=== PATIENT | female | born 1985 | race Caucasian/White ===

== ENCOUNTER 2019-08-29 23:36 | Emergency (ER) | payer BC, MEDICARE ==
--- NOTE | 2019-08-30 00:01 | EDM.PDOC ---
ED HPI GENERAL MEDICAL PROBLEM - General Chief Complaint: Headache Stated Complaint: MIGRAINE Time Seen by Provider: 08/30/19 00:00 Source of Information: Reports: Patient History Limitations: Reports: No Limitations - History of Present Illness INITIAL COMMENTS - FREE TEXT/NARRATIVE: 34-year-old female who is new to our area presents to the ED with a left hemicranial headache. These seem to be a chronic recurrent problem for her since fall and injury to her cervical spine and thoracic spine about 5 years ago. She also has some chronic dental problems which may or may not be contributing to her headache. She has pain coming from the left upper molar teeth. Dental surgery done. Patient states that she has attention deficit disorder and is on Vyvanse for this on a daily basis. Is appreciated quite quickly when speaking with her that she is speaking in a faster than normal and has some flight of ideas indicating that she is hypomanic at this time. She essentially comes to the ED seeking medication for headache relief. He is also asking when she came to do about her chronic cervical neck pain as she's been going to physiotherapy off and on for 5 years. Also asking about who to see as far as local dental care as she is interested in starting in this align etc. Therefore her thought processes are tangential. She describes a headache is constant throbbing and pounding. Associated nausea vomiting or blurred vision. Headache is very similar to what she's experienced multiple times in the past. Onset: Today Onset Date: 08/29/19 Onset Time: 21:00 Duration: Hour(s): Location: Reports: Head ( Her headache is on the left side of her head. left- sided headache. ), Neck (Chronic cervical neck pain primarily in the right side of her neck.), Other Quality: Reports: Ache (Left upper molar dental discomfort.), Throbbing Severity: Moderate Improves with: Reports: None Worsens with: Reports: None (6 out of 10.) Context: Reports: Trauma (Remote trauma 5 years ago from a fall where she injured her cervical spine and her thoracic spine.). Denies: Activity, Exercise , Lifting, Sick Contact, Other Associated Symptoms: Reports: Headaches, Malaise (Gets a lot of headaches.). 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 (see below) (None.) Left Headache Pain Score (Numeric/FACES): 10 - Related Data Allergies Allergy/AdvReac Type Severity Reaction Status Date / Time No Known Allergies Allergy Verified 07/05/19 13:03 Home Meds: Home Meds ALPRAZolam [Xanax] 0.5 mg PO QID PRN 07/05/19 [History] Lisdexamfetamine Dimesylate [Vyvanse] 20 mg PO DAILY 08/29/19 [History] Ondansetron [Zofran] 4 mg BUCCAL Q6H PRN #5 tab 08/30/19 [Rx] oxyCODONE HCl/Acetaminophen [Percocet 5-325 mg Tablet] 1 - 2 each PO Q4H PRN # 10 tablet 08/30/19 [Rx] Past Medical History Musculoskeletal History: Reports: Other (See Below) Other Musculoskeletal History: neck pain Psychiatric History: Reports: ADHD, Anxiety, Bipolar (Suspect bipolar affective disorder) - Past Surgical History HEENT Surgical History: Reports: Oral Surgery Social & Family History - Family History Family Medical History: Noncontributory - Tobacco Use Smoking Status *Q: Current Every Day Smoker Years of Tobacco use: 18 Packs/Tins Daily: 0.2 - Caffeine Use Caffeine Use: Reports: Coffee, Energy Drinks, Soda, Tea - Recreational Drug Use Recreational Drug Use: No - Living Situation & Occupation Living situation: Reports: Single Occupation: Disabled ED ROS GENERAL - Review of Systems Review Of Systems: See Below Constitutional: Denies: Fever, Chills, Malaise, Weakness, Fatigue, Decreased Appetite, Weight Loss HEENT: Reports: Dental Pain Respiratory: Reports: No Symptoms (Doppler dental molar pain.) Cardiovascular: Reports: No Symptoms Endocrine: Reports: No Symptoms GI/Abdominal: Reports: No Symptoms : Reports: No Symptoms Musculoskeletal: Reports: Neck Pain (Chronic right-sided cervical neck pain), Other (Chronic pain thoracic spine.) Skin: Reports: No Symptoms Neurological: Reports: Headache (Chronic headache problems) Psychiatric: Reports: Anxiety, Other (Attention deficit disorder. Clinically she is suffering from bipolar affective disorder with hypomanic state at present.) Immunologic: Reports: No Symptoms - Physical Exam Exam: See Below Exam Limited By: Altered Mental Status (Patient is speaking in a faster pace than normal and is exhibiting hypomania. She is not acutely manic at this time.) General Appearance: Alert, WD/WN, Anxious, Mild Distress Eye Exam: Bilateral Eye: Normal Inspection, PERRL Ears: Normal TMs Throat/Mouth: Normal Inspection, Normal Lips, Normal Teeth, Normal Oropharynx, Other (I could find no abnormalities with her dentition. Gingiva are normal. Firm palpation with tongue blade over the bicuspids and the first and second upper molars gave her no pain.) Head Exam: Atraumatic, Normocephalic Neck: Normal Inspection, Supple, Non-Tender, Full Range of Motion. No: Lymphadenopathy (L), Lymphadenopathy (R) Respiratory/Chest: No Respiratory Distress, Lungs Clear, Normal Breath Sounds, No Accessory Muscle Use Cardiovascular: Normal Peripheral Pulses (Resting tachycardia of 109.), Regular Rate, Rhythm, No Edema, No Gallop, Tachycardia Neuro Exam (Abbreviated): Alert, Oriented, CN II-XII Intact, Normal Cognition, Normal Gait, Normal Reflexes DTR: 1+: Achilles (R), Achilles (L), 2+: Patella (R), Patella (L) Extremities: Normal Inspection, Normal Range of Motion, Non-Tender Psychiatric: Other (Exhibiting hypomanic behavior. Speaking at a faaster rate than normal. Flight of ideas. ). No: Normal Affect, Normal Mood Skin Exam: Warm, Dry, Intact, Normal Color, No Rash Course - Vital Signs Last Recorded V/S: Last Vital Signs Temp 36.7 C 08/29/19 23:44 Pulse 109 H 08/29/19 23:44 Resp 16 08/29/19 23:44 BP 139/96 H 08/29/19 23:44 Pulse Ox 100 08/29/19 23:44 - Radiology Interpretation Free Text/Narrative:: 34-year-old female presents to the ED complaining of a multitude of complaints primarily chronic cervical neck pain right side chronic upper thoracic back pain and chronic recurrent left-sided headaches. She is also concerned about bad teeth left upper molars contributing to her headache pain. However examination of her teeth shows no abnormalities. Cranial nerves II-12 are intact neuro exam is normal. She does have some paraspinal muscle spasm on the right side of her neck and pain over the facet joints at C3 C4 C5 on the right side. Reports a injury where she fell backwards about 5 years ago and is at chronic pain since. Apparently no fractures are identified. Spoke about cervical traction device that she could purchase through [facility]. Tonight and is going to give her 2 Percocet tablets by mouth with Zofran 4 mg sublingual for headache relief. She can find a dentist for panoramic x-rays to ensure that her teeth are normal. There is no doubt that the patient has underlying bipolar affective disorder is exhibiting hypomanic behavior in the ED. Her rate of speech is faster than normal. She has significant flight of ideas and can dwell on one problem for very long. When I approach this subject she indicated that she's functioning well without any need for further medications. Departure - Departure Time of Disposition: 00:10 Disposition: Home, Self-Care 01 Condition: Fair Clinical Impression: Headache Qualifiers: Headache type: paroxysmal hemicrania Headache chronicity pattern: unspecified pattern Intractability: not intractable Qualified Code(s): G44.039 - Episodic paroxysmal hemicrania, not intractable - Discharge Information *PRESCRIPTION DRUG MONITORING PROGRAM REVIEWED*: Not Applicable *COPY OF PRESCRIPTION DRUG MONITORING REPORT IN PATIENT MAYA: Not Applicable Prescriptions: Ondansetron [Zofran] 4 mg BUCCAL Q6H PRN #5 tab PRN Reason: nausea or vomiting oxyCODONE HCl/Acetaminophen [Percocet 5-325 mg Tablet] 1 - 2 each PO Q4H PRN # 10 tablet PRN Reason: pain relief. Instructions: Recurrent Migraine Headache, [id number] Referrals: PCP,None [Primary Care Provider] - Forms: ED Department Discharge Additional Instructions: Evaluation the emergent tonight in regards to left hemicranial headache which seems to be a recurrent problem. Possibly originating from dental problem but I feel more likely to be coming from her cervical spine or neck. Reported injury to her cervical spine and upper portions of the thoracic spine about 5 years ago which have continued to plague you with chronic pain and intermittent headaches. Would suggest purchasing a cervical traction device which can be placed on the top of your doorframe and you can do cervical traction therapy at home. Suggest going to [facility] which is also on [address] near [employer] and [employer] to purchase cervical traction device which she can use once or twice daily to give you relief. Tonight I have prescribed 10 Percocet tablets 5-25 mg strength doses one or 2 tablets every 6 hours as needed for pain relief. Suggest taking a Zofran 4 mg tablet under the tongue with this to prevent any nausea vomiting from the pain pills. As far as the dental dental pain goes , panoramic x-rays would need to be done by a local dentist to make sure there is no infection in the root of any of the left upper molar teeth. On examination today and they appear to be normal and are nontender to exam with no signs of dental abscess. Ear examination was normal as well.
== END 2019-08-30 00:44 | disposition home or self-care (01) ==
LOC: JD.ED 23:36
DX: G44.039 Episodic paroxysmal hemicrania, not intractable (principal); F41.9 Anxiety disorder, unspecified; F90.9 Attention-deficit hyperactivity disorder, unspecified type; F17.210 Nicotine dependence, cigarettes, uncomplicated; Z79.899 Other long term (current) drug therapy
CPT/HCPCS: 99283; 99284

== ENCOUNTER 2019-09-20 13:38 | Emergency (ER) | payer MEDICARE, MEDICAID ==
[2019-09-20] MEDS ORDERED: FLU Vacc QS2019-20(6MOS+)/PF 60 MCG/0.5 ML SYRINGE IM ONE (14:00)
--- NOTE | 2019-09-20 14:04 | EDM.PDOC ---
<Oliva Epstein - Last Filed: 09/20/19 14:29> ED HPI GENERAL MEDICAL PROBLEM - General Chief Complaint: Abdominal Pain Stated Complaint: LOW ABD PAIN Time Seen by Provider: 09/20/19 14:00 Source of Information: Reports: Patient History Limitations: Reports: No Limitations - History of Present Illness INITIAL COMMENTS - FREE TEXT/NARRATIVE: 34 year old female presents to the ED for evaluation of lower abdominal pain. This morning she was having pain across her lower abdomen described as crampy. She currently is at a 0/10 for pain but has a history of ovarian torsion and ovarian cysts and wants to have a transvaginal ultrasound done to check for these two things. She does not think she is . She denies any nausea, vomiting, diarrhea, fever and chills. She is speaking faster than normal, with a tangential thought process and flight of ideas. Very anxious and unable to sit still. Patient history significant for anxiety and ADHD. Onset: Today Onset Date: 09/20/19 Duration: Resolved Prior to Arrival Location: Reports: Abdomen Severity: Mild Improves with: Reports: None Worsens with: Reports: None Associated Symptoms: Reports: No Other Symptoms Bilateral Lower Abdomen Pain Score (Numeric/FACES): 0 - Related Data Allergies Allergy/AdvReac Type Severity Reaction Status Date / Time No Known Allergies Allergy Verified 09/20/19 13:47 Home Meds: Home Meds ALPRAZolam [Xanax] 0.5 mg PO QID PRN 07/05/19 [History] Lisdexamfetamine Dimesylate [Vyvanse] 20 mg PO DAILY 08/29/19 [History] Ondansetron [Zofran] 4 mg BUCCAL Q6H PRN #5 tab 08/30/19 [Rx] Past Medical History Cardiovascular History: Reports: None Respiratory History: Reports: None Gastrointestinal History: Reports: None Genitourinary History: Reports: None 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) Other HOUSE CARPENTER HELPER History: Ovarian Cysts Musculoskeletal History: Reports: Other (See Below) Other Musculoskeletal History: neck pain Neurological History: Reports: None Psychiatric History: Reports: ADHD, Anxiety, Bipolar Endocrine/Metabolic History: Reports: None Hematologic History: Reports: None Immunologic History: Reports: None Oncologic (Cancer) History: Reports: None Dermatologic History: Reports: None - Infectious Disease History Infectious Disease History: Reports: None - Past Surgical History Head Surgeries/Procedures: Reports: None HEENT Surgical History: Reports: Oral Surgery Social & Family History - Family History Family Medical History: Noncontributory - Tobacco Use Smoking Status *Q: Current Every Day Smoker Years of Tobacco use: 3 Packs/Tins Daily: 0.5 - Caffeine Use Caffeine Use: Reports: Coffee, Energy Drinks, Soda - Recreational Drug Use Recreational Drug Use: No - Living Situation & Occupation Living situation: Reports: Single Occupation: Disabled ED ROS GENERAL - Review of Systems Review Of Systems: See Below Constitutional: Reports: No Symptoms HEENT: Reports: No Symptoms Respiratory: Reports: No Symptoms Cardiovascular: Reports: No Symptoms Endocrine: Reports: No Symptoms GI/Abdominal: Reports: No Symptoms : Reports: No Symptoms Musculoskeletal: Reports: No Symptoms Skin: Reports: No Symptoms Neurological: Reports: No Symptoms Psychiatric: Reports: Anxiety Hematologic/Lymphatic: Reports: No Symptoms Immunologic: Reports: No Symptoms ED EXAM, GI/ABD - Physical Exam Exam: See Below Exam Limited By: No Limitations General Appearance: Alert, WD/WN, No Apparent Distress Respiratory/Chest: No Respiratory Distress, Lungs Clear, Normal Breath Sounds, No Accessory Muscle Use, Chest Non-Tender Cardiovascular: Normal Peripheral Pulses, Regular Rate, Rhythm, No Edema, No Gallop, No JVD, No Murmur, No Rub GI/Abdominal Exam: Normal Bowel Sounds, Soft, Non-Tender, No Organomegaly, No Distention, No Abnormal Bruit, No Mass, Pelvis Stable Neurological: Alert, Oriented Psychiatric: Normal Affect, Other (tangential thought process, flight of ideas) Skin Exam: Warm, Dry, Intact, Normal Color, No Rash Lymphatic: No Adenopathy Course - Vital Signs Last Recorded V/S: Last Vital Signs Temp 97.6 F 09/20/19 13:44 Pulse 114 H 09/20/19 13:44 Resp 16 09/20/19 13:44 BP 139/89 09/20/19 13:44 Pulse Ox 100 09/20/19 13:44 - Orders/Labs/Meds Orders: Active Orders 24 hr Category Date Time Status Influenza Vaccine Charge [RC] .DISCHARGE Care 09/20/19 13:50 Active HCG QUANTITATIVE [CHEM] Stat Lab 09/20/19 14:48 Ordered Labs: Laboratory Tests 09/20/19 09/20/19 09/20/19 Range/Units 14:09 14:16 14:16 WBC 10.53 H (3.98-10.04) K/mm3 RBC 3.58 L (3.98-5.22) M/mm3 Hgb 12.0 (11.2-15.7) gm/dl Hct 36.4 (34.1-44.9) % MCV 101.7 H (79.4-94.8) fl MCH 33.5 H (25.6-32.2) pg MCHC 33.0 (32.2-35.5) g/dl RDW Std Deviation 49.1 H (36.4-46.3) fL Plt Count 278 (182-369) K/mm3 MPV 9.8 (9.4-12.3) fl Neut % (Auto) 78.3 H (34.0-71.1) % Lymph % (Auto) 14.3 L (19.3-51.7) % [place] % (Auto) 6.6 (4.7-12.5) % Eos % (Auto) 0.3 L (0.7-5.8) Baso % (Auto) 0.2 (0.1-1.2) % Neut # (Auto) 8.25 H (1.56-6.13) K/mm3 Lymph # (Auto) 1.51 (1.18-3.74) K/mm3 [place] # (Auto) 0.69 H (0.24-0.36) K/mm3 Eos # (Auto) 0.03 L (0.04-0.36) K/mm3 Baso # (Auto) 0.02 (0.01-0.08) K/mm3 Sodium 135 L (136-145) mEq/L Potassium 3.0 L (3.5-5.1) mEq/L Chloride 102 (98-107) mEq/L Carbon Dioxide 21 (21-32) mEq/L Anion Gap 15.0 (5-15) BUN 3 L (7-18) mg/dL Creatinine 0.6 (0.55-1.02) mg/dL Est Cr Clr Drug Dosing 114.08 mL/min Estimated GFR (MDRD) > 60 (>60) mL/min BUN/Creatinine Ratio 5.0 L (14-18) Glucose 94 (74-106) mg/dL Calcium 8.7 (8.5-10.1) mg/dL Total Bilirubin 0.3 (0.2-1.0) mg/dL AST 17 (15-37) U/L ALT 19 (14-59) U/L Alkaline Phosphatase 63 (46-116) U/L Total Protein 7.3 (6.4-8.2) g/dl Albumin 3.6 (3.4-5.0) g/dl Globulin 3.7 gm/dL Albumin/Globulin Ratio 1.0 (1-2) Lipase 40 L (73-393) U/L HCG, Qual (NEGATIVE) Urine Color Yellow (Yellow) Urine Appearance Clear (Clear) Urine pH 6.5 (5.0-8.0) Ur Specific [place] 1.010 (1.005-1.030) Urine Protein Negative (Negative) Urine Glucose (UA) Negative (Negative) Urine Ketones Negative (Negative) Urine Occult Blood Trace-intact H (Negative) Urine Nitrite Negative (Negative) Urine Bilirubin Negative (Negative) Urine Urobilinogen 0.2 (0.2-1.0) Ur Leukocyte Esterase Negative (Negative) Urine RBC 0-5 (0-5) /hpf Urine WBC 0-5 (0-5) /hpf Ur Squamous Epith Cells 0-5 (0-5) /hpf Urine Bacteria Few (FEW) /hpf Urine Mucus Few (FEW) /hpf 09/20/19 Range/Units 14:16 WBC (3.98-10.04) K/mm3 RBC (3.98-5.22) M/mm3 Hgb (11.2-15.7) gm/dl Hct (34.1-44.9) % MCV (79.4-94.8) fl MCH (25.6-32.2) pg MCHC (32.2-35.5) g/dl RDW Std Deviation (36.4-46.3) fL Plt Count (182-369) K/mm3 MPV (9.4-12.3) fl Neut % (Auto) (34.0-71.1) % Lymph % (Auto) (19.3-51.7) % [place] % (Auto) (4.7-12.5) % Eos % (Auto) (0.7-5.8) Baso % (Auto) (0.1-1.2) % Neut # (Auto) (1.56-6.13) K/mm3 Lymph # (Auto) (1.18-3.74) K/mm3 [place] # (Auto) (0.24-0.36) K/mm3 Eos # (Auto) (0.04-0.36) K/mm3 Baso # (Auto) (0.01-0.08) K/mm3 Sodium (136-145) mEq/L Potassium (3.5-5.1) mEq/L Chloride (98-107) mEq/L Carbon Dioxide (21-32) mEq/L Anion Gap (5-15) BUN (7-18) mg/dL Creatinine (0.55-1.02) mg/dL Est Cr Clr Drug Dosing mL/min Estimated GFR (MDRD) (>60) mL/min BUN/Creatinine Ratio (14-18) Glucose (74-106) mg/dL Calcium (8.5-10.1) mg/dL Total Bilirubin (0.2-1.0) mg/dL AST (15-37) U/L ALT (14-59) U/L Alkaline Phosphatase (46-116) U/L Total Protein (6.4-8.2) g/dl Albumin (3.4-5.0) g/dl Globulin gm/dL Albumin/Globulin Ratio (1-2) Lipase (73-393) U/L HCG, Qual Positive H (NEGATIVE) Urine Color (Yellow) Urine Appearance (Clear) Urine pH (5.0-8.0) Ur Specific [place] (1.005-1.030) Urine Protein (Negative) Urine Glucose (UA) (Negative) Urine Ketones (Negative) Urine Occult Blood (Negative) Urine Nitrite (Negative) Urine Bilirubin (Negative) Urine Urobilinogen (0.2-1.0) Ur Leukocyte Esterase (Negative) Urine RBC (0-5) /hpf Urine WBC (0-5) /hpf Ur Squamous Epith Cells (0-5) /hpf Urine Bacteria (FEW) /hpf Urine Mucus (FEW) /hpf Meds: Medications Discontinued Medications Generic Name Dose Route Start Last Admin Trade Name Freq PRN Reason Stop Dose Admin Influenza Virus Vaccine 60 mcg 09/20/19 14:00 09/20/19 14:01 Fluzone Quad [id number] Syringe IM 09/20/19 14:01 60 mcg .ONCE ONE Administration Departure - Departure Disposition: Home, Self-Care 01 Clinical Impression: Qualifiers: Weeks of gestation: less than 8 weeks Qualified Code(s): Z3A.01 - Less than 8 weeks gestation of Ovarian cyst Qualifiers: Laterality: right Qualified Code(s): N83.201 - Unspecified ovarian cyst, right side - Discharge Information Referrals: PCP,None [Primary Care Provider] - Michael Mishra MD [Physician] - 1 Week Forms: ED Department Discharge Additional Instructions: Drink plenty of fluids. Take a vitamin. Use tylenol for any pain. Follow up with Dr Mishra within a week. Please return if you are worse. - My Orders Last 24 Hours: My Active Orders 09/20/19 13:50 Influenza Vaccine Charge [RC] .DISCHARGE 09/20/19 14:48 HCG QUANTITATIVE [CHEM] Stat - Assessment/Plan Last 24 Hours: My Active Orders 09/20/19 13:50 Influenza Vaccine Charge [RC] .DISCHARGE 09/20/19 14:48 HCG QUANTITATIVE [CHEM] Stat <Sanju Fry - Last Filed: 09/20/19 15:31> Course - Re-Assessments/Exams Free Text/Narrative Re-Assessment/Exam: 09/20/19 15:27 I examined the patient myself and I agree with Anastasia's assessment and plan. I ordered labs, UA and a transvaginal US. Her WBC was elevated slightly at 10.53. Her Na is low at 135. Her K is low at 3. Her lipase was low. Her HCG is positive. Her UA shows no UIT. Her US shows a single intrauterine gestation. at 6 weeks 4 days and a heart rat of 115. She also has a 2.9cm simple cyst within the maternal right ovary. I let the patient know. It was a surprise but she took the news well. She has 2 children already. Departure - Departure Time of Disposition: 15:30 Condition: Good - Discharge Information *PRESCRIPTION DRUG MONITORING PROGRAM REVIEWED*: No *COPY OF PRESCRIPTION DRUG MONITORING REPORT IN PATIENT MAYA: No
--- NOTE | 2019-09-20 15:21 | US ---
Firste trimester obstetrical ultrasound: Multiple real-time images were obtained transvaginally. Dates: Current ultrasound: [id number] 05/11/20, gestational age 6 weeks 4 days Single intrauterine gestation is seen. Amniotic fluid volume is normal. Yolk sac and pole are noted. Small amount of free fluid is seen within the cul-de-sac. Maternal right ovary shows a cyst within the right ovary measuring 2.9 cm. Left ovary is unremarkable. Measurements: [place]-rump length: 0.66 cm - 6 weeks 4 days Heart rate: 115 bpm Impression: 1. Single intrauterine gestation. Dates as noted above. 2. 2.9 cm simple cyst within the maternal right ovary. Diagnostic code #2
== END 2019-09-20 15:40 | disposition home or self-care (01) ==
LOC: JD.ED 13:38
DX: O99.89 Other specified diseases and conditions complicating pregnancy, childbirth and the puerperium (principal); N83.201 Unspecified ovarian cyst, right side; O99.341 Other mental disorders complicating pregnancy, first trimester; F41.9 Anxiety disorder, unspecified; O99.331 Smoking (tobacco) complicating pregnancy, first trimester; Z79.899 Other long term (current) drug therapy; Z3A.08 8 weeks gestation of pregnancy
CPT/HCPCS: 36415; 76817; 76817-26; 80053; 81001; 83690; 84702; 84703; 85025; 90471; 90686; 99282; 99284-25; G0008

== ENCOUNTER 2019-11-25 07:35 | Emergency (ER) | payer MEDICARE, MEDICAID ==
--- NOTE | 2019-11-25 08:07 | EDM.PDOC ---
ED HPI GENERAL MEDICAL PROBLEM - General Chief Complaint: Back Pain or Injury Stated Complaint: LOWER BACK PAIN Time Seen by Provider: 11/25/19 08:05 - History of Present Illness INITIAL COMMENTS - FREE TEXT/NARRATIVE: 34-year-old female presents the emergency room complaining of no menstrual period. Patient was seen here September 20 had an 8-week gestation. She developed cramping and bleeding and ultimately had a miscarriage. She was evaluated in the clinic in [place] for this. Since that time the patient has not had a period. She is not had any fevers or chills at this point she denies any pain. She is not having any discharge. 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 (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 Below) Other MANAGER ENVIRONMENTAL AFFAIRS History: Ovarian Cysts Musculoskeletal History: Reports: Other (See Below) Other Musculoskeletal History: neck pain Neurological History: Reports: None Psychiatric History: Reports: ADHD, Anxiety, Bipolar Endocrine/Metabolic History: Reports: None Hematologic History: Reports: None Immunologic History: Reports: None Oncologic (Cancer) History: Reports: None Dermatologic History: Reports: None - Infectious Disease History Infectious Disease History: Reports: None - Past Surgical History Head Surgeries/Procedures: Reports: None HEENT Surgical History: Reports: Oral Surgery Social & Family History - Family History Family Medical History: Noncontributory - Tobacco Use Smoking Status *Q: Never Smoker - Caffeine Use Caffeine Use: Reports: Coffee, Energy Drinks, Soda - Living Situation & Occupation Living situation: Reports: Single Occupation: Disabled ED ROS GENERAL - Review of Systems Review Of Systems: See Below Constitutional: Reports: No Symptoms Respiratory: Reports: No Symptoms Cardiovascular: Reports: No Symptoms GI/Abdominal: Reports: No Symptoms : Reports: No Symptoms Musculoskeletal: Denies: Back Pain ED EXAM,LOWER BACK PAIN/INJURY - Physical Exam Exam: See Below Exam Limited By: No Limitations General Appearance: Alert, Other (He appears a little anxious at this time and is eager to get going) Respiratory/Chest: No Respiratory Distress, Lungs Clear, Normal Breath Sounds Cardiovascular: Regular Rate, Rhythm, No Edema, No Murmur GI/Abdominal: Normal Bowel Sounds, Soft, Non-Tender Back Exam: Normal Inspection, Other (Back exam is normal). No: CVA Tenderness ( L), CVA Tenderness (R), Muscle Spasm, Vertebral Tenderness Course - Vital Signs Last Recorded V/S: Last Vital Signs Temp 36.4 C 11/25/19 07:48 Pulse 109 H 11/25/19 07:48 Resp 16 11/25/19 07:48 BP 149/99 H 11/25/19 07:48 Pulse Ox 100 11/25/19 07:48 - Re-Assessments/Exams Free Text/Narrative Re-Assessment/Exam: 11/25/19 08:[address] Mishra. The patient needs to follow-up and establish with a regular provider to get a proper work-up done for this. I discussed this with the patient and she understands. Departure - Departure Time of Disposition: 08:33 Disposition: Home, Self-Care 01 Clinical Impression: Amenorrhea - Discharge Information Referrals: PCP,None [Primary Care Provider] - Forms: ED Department Discharge Additional Instructions: Return to the emergency room with any questions problems or worsening symptoms. For this particular problem it is best to be worked up in a primary care setting because you will need a work-up for this. Follow-up with the hospital clinic and schedule an appointment. [phone] Sepsis Event Note - Evaluation Sepsis Screening Result: No Definite Risk - Focused Exam Vital Signs: Vital Signs Temp Pulse Resp BP Pulse Ox 11/25/19 07:48 36.4 C 109 H 16 149/99 H 100 Date Exam was Performed: 11/25/19 Time Exam was Performed: 08:36
== END 2019-11-25 08:50 | disposition home or self-care (01) ==
LOC: JD.ED 07:35
DX: N91.2 Amenorrhea, unspecified (principal)
CPT/HCPCS: 99281; 99283

== ENCOUNTER 2020-03-28 17:08 | Emergency (ER) | payer MEDICARE ==
[2020-03-28] MEDS ORDERED: Ketorolac 30 MG/ML SDV IVPUSH ONE (17:36)
[2020-03-28] MEDS ORDERED: Ondansetron 4 MG/2 ML SDV IVPUSH ONE (17:36)
[2020-03-28] MEDS ORDERED: diphenhydrAMINE 50 MG/ML SDV IVPUSH ONE (17:37)
[2020-03-28] MEDS ORDERED: Sodium Chloride 0.9% 1,000 ML IV SCH (17:45)
[2020-03-28] MEDS ORDERED: Ketorolac 30 MG/ML SDV ONE ×2 (17:49→17:57)
[2020-03-28] MEDS ORDERED: diphenhydrAMINE 50 MG/ML SDV ONE ×2 (17:50→17:58)
[2020-03-28] MEDS ORDERED: Ondansetron 4 MG/2 ML SDV ONE ×2 (17:50→17:57)
[2020-03-28] MEDS ORDERED: Sodium Chloride 0.9% 1,000 ML ONE ×2 (17:50→17:58)
[2020-03-28] MEDS ORDERED: HYDROmorphone 0.5 MG/0.5 ML Syringe ONE (18:58)
--- NOTE | 2020-03-28 19:02 | EDM.PDOC ---
ED HPI GENERAL MEDICAL PROBLEM - General Chief Complaint: Headache Stated Complaint: Headache Time Seen by Provider: 03/28/20 17:09 Source of Information: Reports: Patient History Limitations: Reports: No Limitations - History of Present Illness INITIAL COMMENTS - FREE TEXT/NARRATIVE: Patient is a 34-year-old female who presents to the ER with complaints of a migraine headache that started yesterday. Patient does have a history of migraines and states this is similar to her previous headaches. She does have photo and phono sensitivity. She states she has been taking ibuprofen with little to no relief. She does also have intermittent nausea. Patient has a diagnosis of anxiety, ADHD, and bipolar disorder, however states she has not been taking her medications for a few months. She states that when she comes off her medications her migraines usually increase in frequency and intensity. States that she has a follow-up appointment scheduled in April and plans to go back on her medications at that time. She denies any vomiting, dizziness, fever , or chills. 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 Musculoskeletal History: Reports: Other (See Below) Other Musculoskeletal History: neck pain Neurological History: Reports: Migraines Psychiatric History: Reports: ADHD, Anxiety, Bipolar Endocrine/Metabolic History: Reports: None Hematologic History: Reports: None Immunologic History: Reports: None Oncologic (Cancer) History: Reports: None Dermatologic History: Reports: None - Infectious Disease History Infectious Disease History: Reports: None - Past Surgical History Head Surgeries/Procedures: Reports: None HEENT Surgical History: Reports: Oral Surgery Social & Family History - Family History Family Medical History: Noncontributory - Tobacco Use Smoking Status *Q: Current Every Day Smoker Years of Tobacco use: 2 Packs/Tins Daily: 0.5 - Caffeine Use Caffeine Use: Reports: Coffee, Energy Drinks, Soda - Living Situation & Occupation Living situation: Reports: Single Occupation: Disabled ED ROS GENERAL - Review of Systems Review Of Systems: Comprehensive ROS is negative, except as noted in HPI. - Physical Exam Exam: See Below Exam Limited By: No Limitations General Appearance: Alert, WD/WN, No Apparent Distress Head Exam: Atraumatic, Normocephalic Respiratory/Chest: No Respiratory Distress, Lungs Clear, Normal Breath Sounds, No Accessory Muscle Use, Chest Non-Tender Cardiovascular: Normal Peripheral Pulses, Regular Rate, Rhythm, No Edema, No Gallop, No JVD, No Murmur, No Rub Neuro Exam (Abbreviated): Alert, Oriented, CN II-XII Intact, Normal Cognition, Normal Gait, Normal Reflexes, No Motor/Sensory Deficits Psychiatric: Normal Mood, Other (Patient speaks rapidly and tangentially; however, answers questions appropriately. Appears to be hypomanic.) Skin Exam: Warm, Dry, Intact, Normal Color, No Rash Course - Vital Signs Last Recorded V/S: Last Vital Signs Temp 97.7 F 03/28/20 17:21 Pulse 87 03/28/20 17:21 Resp 16 03/28/20 17:21 BP 147/99 H 03/28/20 17:21 Pulse Ox 98 03/28/20 17:21 - Orders/Labs/Meds Orders: Active Orders 24 hr Category Date Time Status Acetaminophen [Tylenol] Med 03/28/20 19:57 Once 325 mg PO NOW ONE Acetaminophen/oxyCODONE [Percocet 325-5 MG] Med 03/28/20 19:57 Once 1 tab PO ONETIME ONE Sodium Chloride 0.9% [Normal Saline] 1,000 ml Med 03/28/20 17:45 Active IV ASDIRECTED Medication Orders Acetaminophen (Tylenol) 325 mg PO NOW ONE Stop: 03/28/20 19:58 Sodium Chloride (Normal Saline) 1,000 mls @ 999 mls/hr IV ASDIRECTED [facility] Meds: Medications Generic Name Dose Route Start Last Admin Trade Name Freq PRN Reason Stop Dose Admin Acetaminophen 325 mg 03/28/20 19:57 Tylenol PO 03/28/20 19:58 NOW ONE Sodium Chloride 1,000 mls @ 999 mls/hr 03/28/20 17:45 Normal Saline IV ASDIRECTED [facility] Discontinued Medications Generic Name Dose Route Start Last Admin Trade Name Freq PRN Reason Stop Dose Admin Diphenhydramine HCl Confirm 03/28/20 17:50 03/28/20 19:29 Benadryl Administered 03/28/20 17:51 Not Given Dose 50 mg .ROUTE .STK-MED ONE Diphenhydramine HCl Confirm 03/28/20 17:58 03/28/20 19:29 Benadryl Administered 03/28/20 17:59 Not Given Dose 50 mg .ROUTE .STK-MED ONE Diphenhydramine HCl 25 mg 03/28/20 17:37 03/28/20 19:28 Benadryl IVPUSH 03/28/20 17:38 Not Given ONETIME ONE Hydromorphone HCl Confirm 03/28/20 18:58 03/28/20 19:29 Dilaudid Administered 03/28/20 18:59 Not Given Dose 0.5 mg .ROUTE .STK-MED ONE Sodium Chloride Confirm 03/28/20 17:50 03/28/20 19:33 Normal Saline Administered 03/28/20 17:51 Not Given Dose 1,000 mls @ as directed .ROUTE .STK-MED ONE Sodium Chloride Confirm 03/28/20 17:58 03/28/20 19:31 Normal Saline Administered 03/28/20 17:59 Not Given Dose 1,000 mls @ as directed .ROUTE .STK-MED ONE Ketorolac Tromethamine Confirm 03/28/20 17:49 03/28/20 19:31 Toradol Administered 03/28/20 17:50 Not Given Dose 30 mg .ROUTE .STK-MED ONE Ketorolac Tromethamine Confirm 03/28/20 17:57 03/28/20 19:30 Toradol Administered 03/28/20 17:58 Not Given Dose 30 mg .ROUTE .STK-MED ONE Ketorolac Tromethamine 30 mg 03/28/20 17:36 03/28/20 19:33 Toradol IVPUSH 03/28/20 17:37 Not Given ONETIME ONE Ondansetron HCl Confirm 03/28/20 17:50 03/28/20 19:30 Zofran Administered 03/28/20 17:51 Not Given Dose 4 mg .ROUTE .STK-MED ONE Ondansetron HCl Confirm 03/28/20 17:57 03/28/20 19:30 Zofran Administered 03/28/20 17:58 Not Given Dose 4 mg .ROUTE .STK-MED ONE Ondansetron HCl 4 mg 03/28/20 17:36 Zofran IVPUSH 03/28/20 17:37 ONETIME ONE - Re-Assessments/Exams Free Text/Narrative Re-Assessment/Exam: Patient presents with a migraine headache that started yesterday. This headache is similar to her past migraines, therefore do not feel that imaging is indicated at this time. I have ordered a liter of normal saline bolus, Toradol 30 mg IV, Zofran 4 mg IV, and Benadryl 25 mg IV. 03/28/20 1830 Patient verbalized little relief from the previous medications given. I have ordered Dilaudid 0.5 mg to be given IV. 03/28/20 19:59 Patient states that the Dilaudid did help with her headache, however it is still somewhat present. Looking back in her previous charts, patient has taken Percocet in the past and then gone home and rested. She stated this did work well for her. Discussed the options of further pursuing IV medications or giving her all medications and allowing her to go home and sleep. She chose to take the Percocet and go home and rest. I have ordered 1 Percocet and a Tylenol 325 mg to be given now. We will discharge her home with instructions to rest. Discharge instructions as documented. Departure - Departure Time of Disposition: 20:00 Disposition: Home, Self-Care 01 Condition: Good Clinical Impression: Migraine - Discharge Information *PRESCRIPTION DRUG MONITORING PROGRAM REVIEWED*: No *COPY OF PRESCRIPTION DRUG MONITORING REPORT IN PATIENT MAYA: No Instructions: Recurrent Migraine Headache, [id number] Referrals: PCP,None [Primary Care Provider] - Forms: ED Department Discharge Additional Instructions: You were seen in the emergency department today for a migraine headache that started yesterday. While in the emergency department you received a liter of IV fluids, Zofran for nausea, Toradol and Dilaudid for pain. You stated these did help your symptoms somewhat. You also received Percocet while in the emergency department. Recommend that you go home and rest in a quiet dark room. You may continue to use Tylenol and ibuprofen as needed for pain. If your symptoms should worsen or you develop any new symptoms of concern, please do not hesitate to return to the emergency department. Sepsis Event Note - Evaluation Sepsis Screening Result: No Definite Risk - Focused Exam Vital Signs: Vital Signs Temp Pulse Resp BP Pulse Ox 03/28/20 17:21 97.7 F 87 16 147/99 H 98 Date Exam was Performed: 03/28/20 Time Exam was Performed: 19:58 - My Orders Last 24 Hours: My Active Orders 03/28/20 17:45 Sodium Chloride 0.9% [Normal Saline] 1,000 ml IV ASDIRECTED 03/28/20 19:57 Acetaminophen [Tylenol] 325 mg PO NOW ONE Acetaminophen/oxyCODONE [Percocet 325-5 MG] 1 tab PO ONETIME ONE - Assessment/Plan Last 24 Hours: My Active Orders 03/28/20 17:45 Sodium Chloride 0.9% [Normal Saline] 1,000 ml IV ASDIRECTED 03/28/20 19:57 Acetaminophen [Tylenol] 325 mg PO NOW ONE Acetaminophen/oxyCODONE [Percocet 325-5 MG] 1 tab PO ONETIME ONE
[2020-03-28] MEDS ORDERED: Acetaminophen 325 MG Tab PO ONE (19:57)
[2020-03-28] MEDS ORDERED: Acetaminophen/oxyCODONE 325-5 MG Tab PO ONE (19:57)
== END 2020-03-28 20:14 | disposition home or self-care (01) ==
LOC: JD.ED 17:08
DX: G43.909 Migraine, unspecified, not intractable, without status migrainosus (principal); F17.210 Nicotine dependence, cigarettes, uncomplicated
CPT/HCPCS: 96374; 96375; 99283; A9270

== ENCOUNTER 2020-03-29 19:18 | Emergency (ER) | payer MEDICARE ==
--- NOTE | 2020-03-29 20:28 | EDM.PDOCBH ---
ED HPI GENERAL MEDICAL PROBLEM - General Chief Complaint: Headache Stated Complaint: HEADACHE Time Seen by Provider: 03/29/20 19:31 Source of Information: Reports: Patient History Limitations: Reports: Altered Mental Status - History of Present Illness INITIAL COMMENTS - FREE TEXT/NARRATIVE: Ms. Mcnulty is a 34-year-old woman a past medical history significant for untreated ADHD, anxiety, and bipolar affective disorder, who, medical records indicate, was seen in this ED yesterday, 03/28/2020, with a complaint at that time of a headache that had started 1 day prior, 03/27/2020. She stated that her headache was similar to prior. She reported nausea and both photophobia and phonophobia. She reported that she had been taking ibuprofen with minimal relief. She reported that she had not been taking any of her psychiatric medications for several months, and that when she discontinued them , her headaches typically got worse in both frequency and intensity. She reported that she would be following up with her PCP in April, and that she intended to restart her psychiatric medications at that time. She was found to be hemodynamically stable, afebrile, saturating 98% on room air. Her physical exam, including her neurologic exam, was unremarkable. She was treated with IV diphenhydramine, Toradol, Zofran, and IV fluid. She told her provider that she had minimal relief, therefore the patient was given IV Dilaudid 0.5 mg IVP, which she then reported did help with her headache, somewhat. She requested oral Percocet and Tylenol, which she was given here in the ED, then discharged home with no prescriptions and the instructions to get rest in a dark quiet room. She was directed to take Tylenol or ibuprofen as needed for discomfort. Nursing notes indicate that the patient then returned to the ED at 10:25 this morning, complaining that she had not been given a prescription for Percocet. A nurse told her that no prescription for Percocet had been written, and to follow-up with her PCP. The patient became angry, and the charge nurse then talked to the patient, telling her the same. The patient became even more agitated. She acknowledged that she is usually prescribed Percocet per her PCP. She told the charge nurse that she would not leave the ED without being given a prescription for Percocet. The charge nurse discussed the case with the ED physician, who was unwilling to write a prescription for the patient. The patient told the charge nurse that she would not leave, therefore she was told that the police would be called if she did not leave or register to be seen. The patient told the charge nurse "I'm just gonna to go out to the truck and get my boyfriend in here then!" The police were contacted, and the patient left the ED. A short while later, both the patient and her boyfriend were seen leaving their truck and walking to the front of the hospital, then later returning to their truck and leaving. The patient then returned to the ED at 16:39 this afternoon, dressed in disguise and pretending to be deaf. She faked sign language. She was then addressed by the same charge nurse as this morning, at which time the patient responded to voice. She told the charge nurse " I'm going to be speaking with patient advocacy Monday." She was then seen leaving in the same truck with her boyfriend. The patient now returns to the ED stating that she has had a left frontal headache that extends to her left neck, her left shoulder, and her upper back, including the right upper back, since , 03/26/2020. She lists a number of cervical and thoracic vertebrae being involved. She describes the character of her pain as "faint", "offset", and "onset". She states that she gets this same pain about twice a year for the past 5 years. She states that she has seen a chiropractor for it, but adamantly denies ever having had a medical evaluation for it. She denies ever having been prescribed any medications for it however, she states that she was treated with "3 pieces of heroin" in 2009 and 2011. Other than the headache/neck ache/upper back ache, the patient states that she has had nausea and vomiting for the past 3 days, otherwise, she denies recent fever, chills, sore throat, ear pain, nasal or sinus congestion, cough, dyspnea , chest pain, palpitations, constipation, diarrhea, abdominal pain, urinary symptoms, recent weight gain or weight loss, recent bloody bowel movements or black bowel movements, recent joint aches, headaches, or rashes. Obtaining a history from the patient is very difficult, as she appears to be delusional, with mental agitation and thought disorganization, including loosening of associations and tangential thinking. Most of what she says makes no sense whatsoever. She states that she had a heart transplant, which I clarified with her that she believes that her [place] heart was removed, and that a donor heart was placed into her chest. She replied that yes, they then put her heart in a box. When I asked her where her sternotomy scar was, she stated that she had had breast augmentation and that the breast augmentation concealed the sternotomy wound. When asking about her social history, she was very evasive. When asked if she was employed, she stated that she was "retired ". Review of the [place] PMPi finds that the patient has had 53 prescriptions for controlled substances over the past 3 years, the vast majority of which were prescribed from [place]. Her most recent Vyvance 20 mg/day x 30 days was prescribed on 09/16/2019, but filled on 10/31/2019. Her most recent opioid was 4 tablets of Percocet 5/325 on 09/30/2019. Here in the ED, the patient is noted to be tachycardic at 117 bpm, otherwise, she is hemodynamically stable, afebrile, saturating 99% on room air. The patient states that she does not have a PCP. Headache Pain Score (Numeric/FACES): 8 - Related Data Allergies Allergy/AdvReac Type Severity Reaction Status Date / Time No Known Allergies Allergy Verified 03/29/20 19:36 Home Meds: Home Meds . 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: Reports: Other (See Below) (Ovarian cysts) Psychiatric History: Reports: ADHD (untreated), Anxiety (untreated), Bipolar ( untreated) - Past Surgical History HEENT Surgical History: Reports: Oral Surgery Female Surgical History: Reports: Breast Implant Social & Family History - Family History Family Medical History: Noncontributory - Tobacco Use Smoking Status *Q: Current Some Day Smoker - Caffeine Use Caffeine Use: Reports: None - Alcohol Use Alcohol Use History: Yes Alcohol Use Frequency: Socially - Recreational Drug Use Recreational Drug Use: Yes Recreational Drug Type: Reports: Marijuana/Hashish - Living Situation & Occupation Living situation: Reports: Single ED ROS GENERAL - Review of Systems Review Of Systems: Unable To Obtain Reason Not Obtained: unreliable due to AMS ED EXAM, BEHAVIORAL HEALTH - Physical Exam Exam: See Below Exam Limited By: No Limitations General Appearance: Alert, WD/WN, No Apparent Distress, Other (Somewhat agitated ) Eye Exam: Bilateral Eye: EOMI, Normal Inspection, PERRL Ears: Normal External Exam, Normal Canal, Hearing Grossly Normal, Normal TMs Nose: Normal Inspection, Normal Mucosa, No Blood Throat/Mouth: Normal Inspection, Normal Lips, Normal Teeth, Normal Gums, Normal Oropharynx, Normal Voice, No Airway Compromise Head: Atraumatic, Normocephalic Neck: Normal Inspection, Full Range of Motion Respiratory/Chest: No Respiratory Distress, Lungs Clear, Normal Breath Sounds, No Accessory Muscle Use, Other (No sternotomy scar) Cardiovascular: Normal Peripheral Pulses, Regular Rate, Rhythm, No Edema, No Gallop, No JVD, No Murmur, No Rub GI/Abdominal: Normal Bowel Sounds, Soft, Non-Tender, No Organomegaly, No Distention, No Abnormal Bruit, No Mass (Female) Exam: Deferred Rectal (Female) Exam: Deferred Back Exam: Normal Inspection, Full Range of Motion, NT Extremities: Normal Inspection, Normal Range of Motion, No Pedal Edema, Normal Capillary Refill Neurological: Alert, CN II-XII Intact, No Motor/Sensory Deficits Psychiatric: Restless, Flight of Ideas, Tangential Thoughts, Pressured Speech Skin Exam: Warm, Dry, Intact, Normal color, No rash EKG INTERPRETATION EKG Date: 03/29/20 Time: 20:24 Rhythm: Other (Sinus tachycardia) Rate (Beats/Min): [employer]: Normal P-Wave: Present QRS: Normal ST-T: Normal QT: Normal Comparison: NA - No Prior EKG COURSE, BEHAVIORAL HEALTH COMP - Course Vital Signs: Last Vital Signs Temp 36.8 C 03/29/20 19:33 Pulse 117 H 03/29/20 19:33 Resp 18 03/29/20 19:33 BP 130/92 H 03/29/20 19:33 Pulse Ox 99 03/29/20 19:33 Orders, Labs, Meds: Active Orders 24 hr Category Date Time Status EKG Documentation Completion [RC] STAT Care 03/29/20 20:20 Active Laboratory Tests 03/29/20 03/29/20 03/29/20 Range/Units 20:30 20:30 20:30 WBC 10.51 H (3.98-10.04) K/mm3 RBC 3.82 L (3.98-5.22) M/mm3 Hgb 12.6 (11.2-15.7) gm/dl Hct 39.2 (34.1-44.9) % MCV 102.6 H (79.4-94.8) fl MCH 33.0 H (25.6-32.2) pg MCHC 32.1 L (32.2-35.5) g/dl RDW Std Deviation 52.3 H (36.4-46.3) fL Plt Count 365 D (182-369) K/mm3 MPV 9.8 (9.4-12.3) fl Neutrophils % (Manual) 57 (40-60) % Band Neutrophils % 1 (0-10) % Lymphocytes % (Manual) 39 (20-40) % Atypical Lymphs % 0 % Monocytes % (Manual) 2 (2-10) % Eosinophils % (Manual) 1 (0.7-5.8) % Basophils % (Manual) 0 L (0.1-1.2) Platelet Estimate Adequate Plt Morphology Comment Normal Macrocytosis 1+ slight RBC Morph Comment Not Reportable Sodium 143 (136-145) mEq/L Potassium 3.8 (3.5-5.1) mEq/L Chloride 106 (98-107) mEq/L Carbon Dioxide 25 (21-32) mEq/L Anion Gap 15.8 H (5-15) BUN 6 L (7-18) mg/dL Creatinine 0.7 (0.55-1.02) mg/dL Est Cr Clr Drug Dosing 97.79 mL/min Estimated GFR (MDRD) > 60 (>60) mL/min BUN/Creatinine Ratio 8.6 L (14-18) Glucose 98 (74-106) mg/dL Calcium 8.3 L (8.5-10.1) mg/dL Total Bilirubin 0.3 (0.2-1.0) mg/dL AST 17 (15-37) U/L ALT 22 (14-59) U/L Alkaline Phosphatase 47 (46-116) U/L Total Protein 7.5 (6.4-8.2) g/dl Albumin 3.7 (3.4-5.0) g/dl Globulin 3.8 gm/dL Albumin/Globulin Ratio 1.0 (1-2) TSH 3rd Generation 0.777 (0.358-3.74) uIU/mL Urine HCG, Qual (NEGATIVE) Salicylates 3.5 (2.8-20) mg/dL Urine Opiates Screen (MTNBIY=336) Ur Buprenorphine Scrn (CUTOFF=10) Ur Oxycodone Screen (HXW6SS=711) Urine Methadone Screen (TKJVNQ=172) Ur Propoxyphene Screen (IZDSHT=778) Acetaminophen 0 L (10-30) ug/mL Ur Barbiturates Screen (RXCPWK=862) Ur Tricyclics Screen (YPXQYQ=656) Ur Phencyclidine Scrn (CUTOFF=25) Ur Amphetamine Screen (ULQIRT=661) U Methamphetamines Scrn (NAWAWN=807) U Benzodiazepines Scrn (ODCCCS=221) U Cocaine Metab Screen (EJBBUQ=319) U Marijuana (THC) Screen (CUTOFF=50) Ethyl Alcohol 0.16 (0.00) gm% 03/29/20 03/29/20 Range/Units 20:48 20:48 WBC (3.98-10.04) K/mm3 RBC (3.98-5.22) M/mm3 Hgb (11.2-15.7) gm/dl Hct (34.1-44.9) % MCV (79.4-94.8) fl MCH (25.6-32.2) pg MCHC (32.2-35.5) g/dl RDW Std Deviation (36.4-46.3) fL Plt Count (182-369) K/mm3 MPV (9.4-12.3) fl Neutrophils % (Manual) (40-60) % Band Neutrophils % (0-10) % Lymphocytes % (Manual) (20-40) % Atypical Lymphs % % Monocytes % (Manual) (2-10) % Eosinophils % (Manual) (0.7-5.8) % Basophils % (Manual) (0.1-1.2) Platelet Estimate Plt Morphology Comment Macrocytosis RBC Morph Comment Sodium (136-145) mEq/L Potassium (3.5-5.1) mEq/L Chloride (98-107) mEq/L Carbon Dioxide (21-32) mEq/L Anion Gap (5-15) BUN (7-18) mg/dL Creatinine (0.55-1.02) mg/dL Est Cr Clr Drug Dosing mL/min Estimated GFR (MDRD) (>60) mL/min BUN/Creatinine Ratio (14-18) Glucose (74-106) mg/dL Calcium (8.5-10.1) mg/dL Total Bilirubin (0.2-1.0) mg/dL AST (15-37) U/L ALT (14-59) U/L Alkaline Phosphatase (46-116) U/L Total Protein (6.4-8.2) g/dl Albumin (3.4-5.0) g/dl Globulin gm/dL Albumin/Globulin Ratio (1-2) TSH 3rd Generation (0.358-3.74) uIU/mL Urine HCG, Qual Negative (NEGATIVE) Salicylates (2.8-20) mg/dL Urine Opiates Screen Negative (OZWPFE=007) Ur Buprenorphine Scrn Negative (CUTOFF=10) Ur Oxycodone Screen Negative (GQF6OQ=971) Urine Methadone Screen Negative (VWOKIQ=879) Ur Propoxyphene Screen Negative (OHVFJZ=552) Acetaminophen (10-30) ug/mL Ur Barbiturates Screen Negative (EGDOJH=364) Ur Tricyclics Screen Negative (ALWOCV=003) Ur Phencyclidine Scrn Negative (CUTOFF=25) Ur Amphetamine Screen Negative (WBEBNV=941) U Methamphetamines Scrn Negative (CVYPME=760) U Benzodiazepines Scrn Negative (SUURXM=666) U Cocaine Metab Screen Negative (CWFSZW=729) U Marijuana (THC) Screen Presumptive positive H (CUTOFF=50) Ethyl Alcohol (0.00) gm% Medications Discontinued Medications Generic Name Dose Route Start Last Admin Trade Name Freq PRN Reason Stop Dose Admin Ibuprofen 600 mg 03/30/20 00:01 03/30/20 00:33 Motrin PO 03/30/20 00:02 600 mg ONETIME ONE Administration Medical Clearance: 03/29/20 20:21 As above, the patient is not making any sense whatsoever. She has delusions, mental agitation, and thought disorganization, including loosening of association and tangential thinking, consistent with acute psychosis. Because of recent drug-seeking behavior, it is entirely possible that the patient's psychosis may be drug-induced, specifically, a stimulant, such as methamphetamine, however, it is also possible that the patient has underlying schizophrenia or schizoaffective disorder. She does not appear to be manic, but untreated bipolar is also a possibility. I have ordered a work-up that includes blood work, a urine drug screen, a urine test, and an ECG. If the patient's drug screen is negative, we will need to consider psychiatric admission. 03/29/20 21:41 The patient's CBC is remarkable for a WBC count mildly elevated at 10.51, but with only 1% bandemia, and the remainder of her CBC being unremarkable. Her CMP is remarkable for an anion gap slightly elevated at 15.8, but with a bicarbonate normal at 25, and the remainder of her CMP being unremarkable. Her TSH is within normal limits at 0.777. Her acetaminophen level is 0. Her salicylate level is within normal limits at 3.5. Her EtOH level is elevated at 0.16. Her urine drug screen is positive for marijuana, only. Her urine test is negative. I very much doubt that alcohol intoxication, with or without marijuana, would cause the patient to have such an unusual presentation. Of course, it is possible that the patient is intoxicated with something not detected on our urine drug screen, however, before pressing for a psychiatric admission, we will need to see what her psychiatric condition is once she is sober. I will therefore recommend that we keep her here in the ED for several hours, to see if there is an improvement. 03/29/20 22:56 Notified that the patient has been asking for pain medication. Obviously, under the current circumstances, I will not be ordering any mind-altering medications. 03/30/20 02:05 It has been several hours. I reevaluated the patient. She is more lucid, although still has a number of bizarre fixed ideas, including that she might have had 1 or 2 heart transplants - she doesn't really know, because she was unconscious at the time - when she underwent breast augmentation. She stated that she had only one "red beer" this morning, and denied that she uses any recreational drugs, including marijuana. She does not have a PCP and is not interested in following up with one, because she has a number of issues that she is working on on her own. She requested a prescription for a pain medication. She stated that every ER she has ever been to always prescribes her pain medicine. I don't doubt that, but I explained why it would be improper for us to prescribe opioids, and the patient did not argue with me, although she did state that as a doctor (note that the patient is not a doctor) , she felt it was appropriate to prescribe opiates to her for "offset" pain. She also complained of dental pain, and I recommended that she follow-up with a dentist, but she stated that her dentist doesn't do anything. I explained that on my examination, I did not see any sign of a dental infection, however, I explained that we do not have dental x-rays here in the ED, and that a dental x- ray, taken at the dentist's office, can determine if she has a dental infection , and if so, they can treat it. She said that she would simply pull her tooth out, wash it off, then put it back in. I am less certain that the patient is psychotic although it is still possible. I believe that she just has a number of bizarre fixed ideas and it does not appear that she can be talked out of them. There is no suggestion that she is either suicidal or homicidal, therefore I don't see the need for emergency psychiatric admission, therefore I will discharge her home. 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 Work-up in the ER included blood work, a urine test, a urine drug screen, and an ECG. Your alcohol level returned elevated at 0.16. For reference, that is twice the legal limit for driving. Additionally, your urine drug screen returned positive for marijuana. The remainder of your work-up was unremarkable. We strongly recommend that you follow-up with a PCP at the [facility] for evaluation and treatment of your recurrent headaches, and with a dentist to evaluate and treat your dental pain. If any other problems, please do not hesitate to return to the ER. Sepsis Event Note - Evaluation Sepsis Screening Result: No Definite Risk - Focused Exam Vital Signs: Vital Signs Temp Pulse Resp BP Pulse Ox 03/29/20 19:33 36.8 C 117 H 18 130/92 H 99 Date Exam was Performed: 03/30/20 Time Exam was Performed: 02:56 - My Orders Last 24 Hours: My Active Orders 03/29/20 20:20 EKG Documentation Completion [RC] STAT - Assessment/Plan Last 24 Hours: My Active Orders 03/29/20 20:20 EKG Documentation Completion [RC] STAT
[2020-03-29 21:16] LABS: ACETAMINOPHEN 0 ug/mL (10-30)
[2020-03-30] MEDS ORDERED: Ibuprofen 600 MG Tab PO ONE (00:01)
== END 2020-03-30 02:25 | disposition home or self-care (01) ==
LOC: JD.ED 19:18
DX: G44.039 Episodic paroxysmal hemicrania, not intractable (principal); K08.89 Other specified disorders of teeth and supporting structures; F17.200 Nicotine dependence, unspecified, uncomplicated
CPT/HCPCS: 36415; 80053; 80306; 80307; 81025; 84443; 85007; 85027; 93005; 93010; 99283; 99284-25; A9270-GY